=== PATIENT | female | born 1980 | race Asian ===

== ENCOUNTER 2018-11-09 05:28 | Day surgery (SDC) | payer OTHER ==
[2018-11-08 14:19] VITALS: BMI 33.2
[2018-11-09] MEDS ORDERED: PROMETHAZINE HCL 25 MG/1 ML VIAL IVPB PRN (13:35)
[2018-11-09] MEDS ORDERED: oxyCODONE HCL 5 MG TABLET PO PRN (13:35)
[2018-11-09] MEDS ORDERED: ONDANSETRON 4 MG/2 ML VIAL IVPUSH PRN ×2 (13:35→14:51)
[2018-11-09] MEDS ORDERED: LACTATED RINGERS SOLUTION 1,000 ML IV SCH ×2 (13:45→15:00)
[2018-11-09] MEDS ORDERED: MIDAZOLAM HCL 2 MG/2 ML SINGLE DOSE VIAL ONE (14:08)
--- NOTE | 2018-11-09 14:13 | HP ---
History & Physical Update - History History: No Change (Menometrorrhagia) - Physical Physical: No Change - Assessment Assessment: No Change - Plan Plan: No Change (hysteroscopy, D&C)
[2018-11-09] MEDS ORDERED: PROPOFOL 20 ML ONE (14:30)
[2018-11-09] MEDS ORDERED: ALBUTEROL SO4 8 GM HFA INHALER IH PRN (14:42)
--- NOTE | 2018-11-09 14:42 | OP ---
Operative Note - Note: Operative Date: 11/09/18 Pre-Operative Diagnosis: Menometrorrhagia Operation: Hysteroscopy, D&C Findings: Normal [employer]ANCE exam, Normal endometrial cavity. Post-Operative Diagnosis: Same as Pre-op Surgeon: Abdi Samson Anesthesiologist/SUPERVISOR PICKING CREW: Krista Lindsey MD Anesthesia: General Specimens Removed: Endometrial curettings Estimated Blood Loss (mls): 5 Blood Volume Replaced (mls): 0 Fluid Volume Replaced (mls): 400 Operative Report Dictated: Yes
[2018-11-09 17:51] VITALS: BP 102/65; PULSE 88; TEMP 98
--- NOTE | 2018-11-10 15:27 | OP ---
DATE OF OPERATION: 11/09/2018 PREOPERATIVE DIAGNOSIS: Menometrorrhagia. POSTOPERATIVE DIAGNOSIS: Menometrorrhagia. PROCEDURE: Hysteroscopy, dilation and curettage. SURGEON: Abdi Samson MD CHILD WELFARE DIRECTOR: None. ANESTHESIOLOGIST: Krista Lindsey MD ANESTHESIA: General. COMPLICATIONS: None. INTRAVENOUS FLUIDS: 400 mL. ESTIMATED BLOOD LOSS: 5 mL. PATHOLOGY: Endometrial curettings. FINDINGS: Examination under anesthesia revealed a small anteverted uterus with no pelvic or adnexal masses. The uterus is freely mobile within the pelvic cavity. The hysteroscopy revealed a normal endometrial cavity with no lesions or masses. Uncomplicated hysteroscopy, dilation and curettage were performed. DESCRIPTION OF PROCEDURE: The patient was met preoperatively. Risks, benefits, alternatives of surgery were discussed in detail. All questions were answered. The consent form was reviewed and discussed. She verbalized her understanding and requested to proceed with the surgery. The patient was then brought to the OR with the IV running. She was placed on a surgical table in a supine position. The general anesthesia was achieved without difficulty. The patient was then placed in a dorsal lithotomy position using adjustable Cristian stirrups. She was examined under anesthesia with the findings as described above. A timeout was then conducted as per standard protocol. The patient was then prepped and draped in the usual sterile fashion, and the surgeon proceeded with the operation. A weighted speculum was introduced inside the vagina, with good visualization of the cervix. The cervix was grasped with a single-tooth tenaculum. The cervical os did not need to be dilated. A diagnostic hysteroscope was gently advanced through the endocervical canal and into the uterine cavity. The uterine cavity was noted to be within normal limits. The hysteroscope was then removed. A sharp endometrial curettage was then performed. The tissue was sent to pathology for evaluation. The instruments were then removed from the patient. Good hemostasis was confirmed. Sponge, lap, and needle counts were correct. Once again, good hemostasis was noted. The patient was returned to supine position. The patient was then transferred to recovery room in stable condition and awake. Keila [id number]
--- NOTE | 2018-11-11 16:04 | PATH ---
Surgical Pathology Report Patient Name: RADHA ROBISON [facility]. Rec. #: [id number] /Age/Gender: 1980 (Age: 38) / F Account: [id number] Location: [facility] Taken: 11/09/2018 Received: 11/10/2018 Reported: 11/11/2018 Physicians: Abdi Samson M.D. Specimen(s) Received ENDOMETRIAL CURETTINGS Clinical History Menorrhagia Final Diagnosis ENDOMETRIAL CURETTINGS: PROLIFERATIVE ENDOMETRIUM WITH MILD CHRONIC ENDOMETRITIS, FOCAL EOSINOPHILIC PAPILLARY SYNCYTIAL CHANGE, AND CILIATED (TUBAL) METAPLASIA. Electronically Signed Portia Tucker M.D. Gross Description Received in formalin labeled "endometrial curettings," is a 2.8 x 2.0 x 0.3 cm aggregate of dietrich-brown soft tissue fragments. The formalin is filtered and the specimen is entirely submitted in 2 cassettes. /11/10/2018 saudi/11/10/2018
== END 2018-11-09 17:30 | disposition home or self-care (01) ==
LOC: JASU-SURG 05:28
PROVIDERS: ATTEND Obstetrics & Gynecology
PROC: 0UDB7ZX Extraction of Endometrium, Via Natural or Artificial Opening, Diagnostic (ICD-10-PCS; principal; 2018-11-09 14:00)
PROC: 0UJD8ZZ Inspection of Uterus and Cervix, Via Natural or Artificial Opening Endoscopic (ICD-10-PCS; 2018-11-09 14:00)
DX: N92.1 Excessive and frequent menstruation with irregular cycle (principal)
CPT/HCPCS: 84703; 88305-TC; 94760